=== PATIENT | male | born 1980 | race Two or more races ===

== ENCOUNTER 2016-09-11 23:24 | Observation (INO) | payer SELFPAY ==
[~2016-09-11] VITALS: Ht 170.2 cm; Wt 111.4 kg
--- NOTE | ~2016-09-11 | DS ---
PATIENT:ADAM AL :84 MEDICAL RECORD: [id number] DISCHARGE SUMMARY ADMISSION DATE: 09/12/16 DISCHARGE DATE: 09/12/16 DISCHARGE DIAGNOSES: 1. Left lower quadrant abdominal pain, resolved. 2. Left nephrolithiasis. 3. Leukocytosis. 4. Fatty liver. HOSPITAL COURSE: A 36-year-old male with no prior history of illness presented with acute onset of left lower quadrant abdominal and flank pain. He vomited twice, called the EMS and came to the ED. Initial evaluation showed the patient to be in moderate pain. He had a white count of 17,000 with a left shift. His BMP showed an elevated creatinine of 2.5. UA showed trace protein, trace blood, 0-5 red cells. He was hydrated. Creatinine dropped to normal at 1.1 with a BUN of 17 after Tsai placement. The patient has been pain free ever since. CT scan of the abdomen did show evidence of a small renal pelvis stone. Clinical impression is that the patient passed a ureteral calculus and is now asymptomatic. The white count is down to 14,000. He has been pain free all day, tolerating diet and not taking any analgesics. Tsai will be removed. He will be discharged today. He will have follow up with ____ for possible lithotripsy. DISCHARGE MEDICATIONS: Tylenol p.r.n. ACTIVITY: Progress as tolerated. DIET: Regular. Return to clinic to ____ in 2 weeks. TRANSINT:[id number] Voice Confirmation ID: [id number] DOCUMENT ID: [id number] MARCIAL RENTERIA MD CC: [id number] DICTATION DATE: 09/12/161758 RIBBON BLOCKER: 09/13/16310 DIS IN 09/12/16 [facility] [address] [id number]
[2016-09-12 00:12] LABS: BASOPHILS 0.2 % (0-2); EOSINOPHILS 0.6 % (0-7); HEMATOCRIT 46.2 % (42.0-54.0); HEMOGLOBIN 15.6 g/dL (13.5-17.5); IMMATURE GRANULOCYTES 0.9 % (0-5); LYMPHOCYTES 10.7 % (15-50); MCH 28.4 pg (26.0-34.0); MCHC 33.8 g/dL (31.0-37.0); MEAN PLATELET VOLUME 12.5 fL (7.4-10.4); MONOCYTES 4.9 % (2-11); NEUTROPHILS 82.7 % (40-80); PLATELET COUNT 199 10x3/uL (130-400); RDW 13.9 % (11.5-14.5); WBC 17.1 10x3/uL (4.8-10.8)
[2016-09-12 00:25] LABS: ALBUMIN 4.6 g/dL (3.4-5.0); ANION GAP 16.9 mmol/L (8-16); BILIRUBIN - TOTAL 0.47 mg/dL (0.2-1.3); CALCIUM 9.7 mg/dL (8.5-10.1); CARBON DIOXIDE 23.9 mmol/L (21.0-32.0); CREATININE - SERUM 2.5 mg/dL (0.6-1.3); POTASSIUM - SERUM 3.8 mmol/L (3.5-5.1); PROTEIN - SERUM 8.4 g/dL (6.4-8.2)
[2016-09-12 02:32] LABS: APPEARANCE CLEAR (CLEAR); BILIRUBIN NEGATIVE (NEGATIVE); COLOR YELLOW (YELLOW); GLUCOSE NEGATIVE (NEGATIVE); KETONE NEGATIVE (NEGATIVE); LEUKOCYTE ESTERASE NEGATIVE (NEGATIVE); NITRITE NEGATIVE (NEGATIVE); PROTEIN TRACE mg/dL (NEGATIVE); UROBILINOGEN NORMAL (NORMAL); WHITE CELLS - URINE NSEEN /hpf (0-5)
[2016-09-12 02:33] LABS: RED CELLS - URINE 0-5 /hpf (0-5)
--- NOTE | 2016-09-12 03:16 | NUR ---
PT RECEIVEDB FROM ER, IV-LAC-, SPEAKS NO GEORGIAN, WILL TRANSLATE, VITALS ARE STABLE, BED IS LOW, SRX2, CALL LIGHT IN REACH, WILL FOLLOW ORDERS
[2016-09-12 03:47] VITALS: Ht 170.2 cm; Wt 111.4 kg
[2016-09-12 04:00] VITALS: BP 112/51
--- NOTE | 2016-09-12 07:10 | NUR ---
PT IN BED RESTING WITH EYES CLOSED. ASLEEP IN RECLINER. CALVO INTACT WITH DRK COLOR URINE. O2 AT 2 LITERS PER NC. NO DISTRESS NOTED. WILL MONITOR.
[2016-09-12 07:31] LABS: BASOPHILS 0.1 % (0-2); EOSINOPHILS 1.6 % (0-7); HEMATOCRIT 42.2 % (42.0-54.0); HEMOGLOBIN 14.2 g/dL (13.5-17.5); IMMATURE GRANULOCYTES 0.5 % (0-5); LYMPHOCYTES 22.9 % (15-50); MCH 28.5 pg (26.0-34.0); MCHC 33.6 g/dL (31.0-37.0); MCV 84.6 fL (80.0-100.0); MEAN PLATELET VOLUME 12.1 fL (7.4-10.4); MONOCYTES 6.4 % (2-11); NEUTROPHILS 68.5 % (40-80); PLATELET COUNT 174 10x3/uL (130-400); RBC 4.99 10x6/uL (4.20-6.10); RDW 14.3 % (11.5-14.5)
[2016-09-12 07:40] LABS: CALCIUM 8.8 mg/dL (8.5-10.1); CARBON DIOXIDE 25.2 mmol/L (21.0-32.0); CHLORIDE - SERUM 105 mmol/L (98-107); GLUCOSE 107 mg/dL (74-106); POTASSIUM - SERUM 3.8 mmol/L (3.5-5.1); SODIUM 139 mmol/L (136-145); eGFR NON AFRICAN AMERICAN 81 mL/min (90-120)
[2016-09-12 07:41] LABS: CALC OSMOLALITY 279 mosm/kg (275-300); CREATININE - SERUM 1.1 mg/dL (0.6-1.3); UREA NITROGEN 17 mg/dL (7-18)
[2016-09-12 09:09] VITALS: BP 92/55
--- NOTE | 2016-09-12 09:37 | NUR ---
NO NEEDS VOICED. AT BS. CALL LIGHT IN REACH. WILL CONT. PLANOF CARE.
--- NOTE | 2016-09-12 10:50 | NUR ---
CALVO D/C WITH TIP INTACT. HAD SORENESS WITH REMOVAL. TOLD AND PT THAT HE NEEDS TO URINATE WITHIN 12 HRS OR WILL HAVE TO PLACE ANOTHER ONE SO TO LET ME KNOW WHEN HE GOES. ASSISTED PT OOB TO [facility].
[2016-09-12 13:20] VITALS: BP 121/57
--- NOTE | 2016-09-12 17:15 | NUR ---
PT SITTING UP ON SIDE OF BED. NO DISTRESS NOTED. PT ANXIOUS ABOUT GOING HOME. BUT EXPLAINED THAT THERE WAS NO ORDERS ABOUT DISCHARGE. IV TO LEFT AC @ 125CC/HR. WILL CONT TO MONITOR.
[2016-09-12 17:16] VITALS: BP 118/70
--- NOTE | 2016-09-12 18:00 | HP ---
PATIENT: ADAM AL MEDICAL RECORD: [id number] ACCOUNT: [id number] LOCATION:. D.2139 : 84 ADMISSION DATE: 09/12/16 HISTORY AND PHYSICAL EXAMINATION REASON FOR ADMISSION: Left lower quadrant abdominal pain and vomiting. HISTORY OF PRESENT ILLNESS: The patient is a 36-year-old male whose states when he came home from work yesterday that he is having severe left lower quadrant abdominal pain and back pain. He vomited twice, called EMS. He was brought to the ED for that reason. He denied fever, trouble urinating, hematuria, or history of injury. His past history is otherwise unremarkable. In the ED, he has tenderness in the left lower quadrant and had a 17,000 white count. He had scant hematuria as well. CT of the abdomen showed no acute abdominal process, but tiny left nephrolith was noted in the kidney. There were no obstructive findings. The patient is admitted for pain control, evaluation of his abdominal pain and for hydration as his creatinine was elevated. BUN of 21, creatinine of 2.5. Glucose was 148, nonfasting. ALT was mildly elevated at 94. He denied fever. Denied previous history of kidney issues or kidney stones. PAST MEDICAL HISTORY: Osteoarthritis of knees. PAST SURGICAL HISTORY: Negative. ALLERGIES: None known. HOME MEDICATIONS: None. SOCIAL HISTORY: His states he drinks ____ coca-cola. He smokes a pack of cigarettes a day for years. FAMILY HISTORY: Father recently diagnosed with diabetes. Mother in good health. REVIEW OF SYSTEMS: CONSTITUTIONAL: No fever or fatigue. HEENT: No recent visual change, sinus congestion, or sore throat. RESPIRATORY: No SOB or cough. CARDIAC: No chest pain, claudication or edema. GASTROINTESTINAL: Had nausea and vomiting twice and has pain occurred, none since. No change in stools or blood per rectum. GENITOURINARY: Denies dysuria or hematuria. No history of kidney stones. NEUROLOGIC: No history of stroke, TIA, or vascular headaches. MUSCULOSKELETAL: Arthralgias in his knees bilaterally. PSYCHIATRIC: Denies history of depressed mood or anxiety. PHYSICAL EXAMINATION: GENERAL: Alert 36-year-old male, in obvious pain. VITAL SIGNS: Temperature 99.6, pulse 101, respirations are 20, blood pressure 137/71 and sat 96% on room air. HEENT: Normocephalic. Eyes are clear. NECK: No bruits or masses. CHEST: Clear. HEART: Regular without murmur. PMI appropriate. HISTORY AND PHYSICAL [id number] ADAM AL ABDOMEN: Mildly obese. He is exquisitely tender in the left lower quadrant without rebound. Bowel sounds are active. EXTREMITIES: No CC&E. LABORATORY DATA: His white count is 17,000 with left shift. H&H is 15 and 46.2 respectively. Chemistry shows BUN and creatinine of 21 and 2.5, potassium of 3.8. Urinalysis shows trace blood, 0-5 red cells, negative bacteria, negative white cells. DIAGNOSTIC DATA: CT of the abdomen shows a 2-mm nonobstructing calculus in mid portion of the left kidney. No evidence of ureteral calculi or obstructive uropathy or fatty liver noted. ASSESSMENT: 1. Renal colic, severe abdominal pain. 2. Acute renal insufficiency. 3. Microscopic hematuria. 4. Left renal calculus. PLAN: The patient was admitted to observation for fluid. We will place Tsai to rule out obstruction. Further workup pending clinical course. TRANSINT:[id number] Voice Confirmation ID: [id number] DOCUMENT ID: [id number] MARCIAL RENTERIA MD at 1800 CC: [id number] DICTATION DATE: 09/12/16 1000 AIRCRAFT MECHANIC: 09/12/16 1221 ADM IN [id number] [place] [address]
--- NOTE | 2016-09-12 18:23 | NUR ---
DR RENTERIA HERE WITH ORDERS TO DISCHARGE PT HOME WITH . NOTIFIED FAMILY THAT I WOULD DO PAPERWORK AND BE BACK TO TAKE OUT IV AND GET HIM SENT HOME.
--- NOTE | 2016-09-12 18:34 | NUR ---
IV REMOVED WENT OVER DISCHARGE INSTRUCTION WITH . NO C/O PAIN VOICED. THEY HAVE TO PACK BELONGINGS BEFORE ABLE TO LEAVE.
--- NOTE | 2016-09-12 18:46 | NUR ---
PT LEFT WITH AND PER HIS REQUEST HE WALKED DOWN TO ENTRANCE WITH KRYSTALING WITH PT. ALL BELONGINGS PACKED AND SENT WITH PT.
== END 2016-09-12 18:48 | disposition home or self-care (01) ==
LOC: D.ER 23:24 → D.M2 09-12 02:49 → OBSVTIME 09-12 02:49 → D.M2 09-12 18:48
PROVIDERS: Family Medicine; ADMIT Family Medicine
DX: N20.0 Calculus of kidney (principal); K76.0 Fatty (change of) liver, not elsewhere classified; E66.9 Obesity, unspecified; N28.9 Disorder of kidney and ureter, unspecified; R31.29 Other microscopic hematuria

== ENCOUNTER 2016-11-06 16:52 | Emergency (ER) | payer SELFPAY ==
[2016-09-12 03:47] VITALS: BMI 31.4
[2016-11-06 18:41] LABS: BASOPHILS 0.4 % (0-2); EOSINOPHILS 4.4 % (0-7); HEMATOCRIT 46.1 % (42.0-54.0); HEMOGLOBIN 15.3 g/dL (13.5-17.5); IMMATURE GRANULOCYTES 0.6 % (0-5); LYMPHOCYTES 26.1 % (15-50); MCH 28.3 pg (26.0-34.0); MCHC 33.2 g/dL (31.0-37.0); MCV 85.4 fL (80.0-100.0); MEAN PLATELET VOLUME 11.8 fL (7.4-10.4); MONOCYTES 7.2 % (2-11); NEUTROPHILS 61.3 % (40-80); PLATELET COUNT 180 10x3/uL (130-400); RDW 14.1 % (11.5-14.5); WBC 12.1 10x3/uL (4.8-10.8)
[2016-11-06 18:51] LABS: ALBUMIN 3.9 g/dL (3.4-5.0); ALKALINE PHOSPHATASE 86 U/L (46-116); ALT (SGPT) 51 U/L (10-68); BILIRUBIN - TOTAL 0.42 mg/dL (0.2-1.3); CALC OSMOLALITY 279 mosm/kg (275-300); CALCIUM 8.9 mg/dL (8.5-10.1); CARBON DIOXIDE 27.2 mmol/L (21.0-32.0); CHLORIDE - SERUM 104 mmol/L (98-107); CREATININE - SERUM 0.8 mg/dL (0.6-1.3); GLUCOSE 91 mg/dL (74-106); POTASSIUM - SERUM 3.8 mmol/L (3.5-5.1); PROTEIN - SERUM 7.5 g/dL (6.4-8.2); SODIUM 140 mmol/L (136-145); UREA NITROGEN 16 mg/dL (7-18); eGFR NON AFRICAN AMERICAN > 90 mL/min (90-120)
[2016-11-06 19:51] LABS: APPEARANCE CLEAR (CLEAR); COLOR YELLOW (YELLOW); LEUKOCYTE ESTERASE 1+ (NEGATIVE)
[2016-11-06 19:52] LABS: BILIRUBIN NEGATIVE (NEGATIVE); GLUCOSE NEGATIVE (NEGATIVE); KETONE NEGATIVE (NEGATIVE); NITRITE NEGATIVE (NEGATIVE); PROTEIN TRACE mg/dL (NEGATIVE); UROBILINOGEN NORMAL (NORMAL)
[2016-11-06 19:53] LABS: RED CELLS - URINE NONE SEEN /hpf (0-5); WHITE CELLS - URINE 0-5 /hpf (0-5)
[2016-11-06 19:54] LABS: EPITHELIAL CELLS RARE /hpf (0-5)
[2016-11-06 20:36] LABS: LIPASE 138 U/L (73-393)
== END 2016-11-07 00:18 | disposition home or self-care (01) ==
LOC: D.ER 16:52
PROVIDERS: Emergency Medicine
DX: N20.1 Calculus of ureter (principal); F17.200 Nicotine dependence, unspecified, uncomplicated

== ENCOUNTER 2016-12-10 09:16 | Emergency (ER) | payer SELFPAY ==
[2016-09-12 03:47] VITALS: BMI 31.4
[2016-12-10 10:06] LABS: HEMATOCRIT 44.3 % (42.0-54.0); HEMOGLOBIN 14.7 g/dL (13.5-17.5); LYMPHOCYTES 19.4 % (15-50); MCH 27.7 pg (26.0-34.0); MCHC 33.2 g/dL (31.0-37.0); MCV 83.6 fL (80.0-100.0); NEUTROPHILS 74.5 % (40-80); PLATELET COUNT 148 10x3/uL (130-400); WBC 8.7 10x3/uL (4.8-10.8)
[2016-12-10 10:20] LABS: ALBUMIN 3.6 g/dL (3.4-5.0); ALKALINE PHOSPHATASE 80 U/L (46-116); ALT (SGPT) 49 U/L (10-68); CALC OSMOLALITY 278 mosm/kg (275-300); CALCIUM 8.9 mg/dL (8.5-10.1); CARBON DIOXIDE 25.7 mmol/L (21.0-32.0); CHLORIDE - SERUM 104 mmol/L (98-107); CREATININE - SERUM 0.8 mg/dL (0.6-1.3); POTASSIUM - SERUM 3.8 mmol/L (3.5-5.1); SODIUM 138 mmol/L (136-145); UREA NITROGEN 13 mg/dL (7-18); eGFR NON AFRICAN AMERICAN > 90 mL/min (90-120)
[2016-12-10 10:22] LABS: GLUCOSE 159 mg/dL (74-106)
[2016-12-10 10:28] LABS: PRO BNP 28 pg/mL (0-125); TROPONIN-I < 0.017 ng/mL (0.000-0.060)
== END 2016-12-10 11:19 | disposition home or self-care (01) ==
LOC: D.ER 09:16
PROVIDERS: Emergency Medicine
DX: K59.00 Constipation, unspecified (principal); R11.2 Nausea with vomiting, unspecified; R10.9 Unspecified abdominal pain; F17.200 Nicotine dependence, unspecified, uncomplicated

== ENCOUNTER 2017-03-04 14:26 | Emergency (ER) | payer SELFPAY ==
[2016-09-12 03:47] VITALS: BMI 31.4
[2017-03-04 17:54] LABS: APPEARANCE HAZY (CLEAR); BILIRUBIN NEGATIVE (NEGATIVE); COLOR YELLOW (YELLOW); GLUCOSE NEGATIVE (NEGATIVE); KETONE NEGATIVE (NEGATIVE); NITRITE POSITIVE (NEGATIVE); PROTEIN NEGATIVE (NEGATIVE); UROBILINOGEN NORMAL (NORMAL)
[2017-03-04 17:58] LABS: RED CELLS - URINE 0-5 /hpf (0-5)
[2017-03-04 17:59] LABS: BACTERIA FEW /hpf (NONE SEEN)
== END 2017-03-04 20:48 | disposition home or self-care (01) ==
LOC: D.ER 14:26
PROVIDERS: Emergency Medicine
DX: N39.0 Urinary tract infection, site not specified (principal)

== ENCOUNTER 2017-04-15 23:10 | Emergency (ER) | payer SELFPAY ==
[2016-09-12 03:47] VITALS: BMI 31.4
[2017-04-16 00:22] LABS: APPEARANCE CLEAR (CLEAR); BILIRUBIN NEGATIVE (NEGATIVE); COLOR YELLOW (YELLOW); GLUCOSE NEGATIVE (NEGATIVE); KETONE NEGATIVE (NEGATIVE); NITRITE NEGATIVE (NEGATIVE); PROTEIN NEGATIVE (NEGATIVE); UROBILINOGEN NORMAL (NORMAL)
[2017-04-16 00:37] LABS: HEMATOCRIT 43.5 % (42.0-54.0); HEMOGLOBIN 14.6 g/dL (13.5-17.5); LYMPHOCYTES 27.7 % (15-50); MCH 27.8 pg (26.0-34.0); MCHC 33.6 g/dL (31.0-37.0); MCV 82.9 fL (80.0-100.0); NEUTROPHILS 66.8 % (40-80); PLATELET COUNT 140 10x3/uL (130-400); RBC 5.25 10x6/uL (4.20-6.10); WBC 11.2 10x3/uL (4.8-10.8)
[2017-04-16 00:47] LABS: ALBUMIN 4.1 g/dL (3.4-5.0); ALKALINE PHOSPHATASE 79 U/L (46-116); ALT (SGPT) 52 U/L (10-68); AMYLASE - SERUM 38 U/L (25-115); BILIRUBIN - TOTAL 0.41 mg/dL (0.2-1.3); CALC OSMOLALITY 277 mosm/kg (275-300); CALCIUM 8.9 mg/dL (8.5-10.1); CARBON DIOXIDE 27.3 mmol/L (21.0-32.0); CHLORIDE - SERUM 101 mmol/L (98-107); CREATININE - SERUM 0.7 mg/dL (0.6-1.3); GLUCOSE 90 mg/dL (74-106); LIPASE 103 U/L (73-393); POTASSIUM - SERUM 3.9 mmol/L (3.5-5.1); PROTEIN - SERUM 7.2 g/dL (6.4-8.2); SODIUM 139 mmol/L (136-145); UREA NITROGEN 12 mg/dL (7-18); eGFR NON AFRICAN AMERICAN > 90 mL/min (90-120)
== END 2017-04-16 01:49 | disposition home or self-care (01) ==
LOC: D.ER 23:10
PROVIDERS: Family Medicine
DX: R10.9 Unspecified abdominal pain (principal); F17.200 Nicotine dependence, unspecified, uncomplicated